=== PATIENT | female | born 1955 | race Caucasian/White ===

== ENCOUNTER → 2019-03-27 | Outpatient (CLI) | payer BC ==
[2015-06-07 09:26] VITALS: BP 136/75
[~2019-03-27] MED LIST: CHOL100014 PO; CYAN1TAB28 PO; GLIP2.5T4 PO; LOSA25TA54 PO; METF10007 PO
--- NOTE | 2019-03-27 17:24 | KCIC ---
SHOULDER 2+V RIGHT History: Right shoulder pain after a fall. Injury 3 weeks ago. FINDINGS: No evidence of acute fracture. No evidence of aggressive bone destruction. Small lucencies at the greater tuberosity and at the glenoid are likely degenerative cysts. Joint spaces intact without dislocation. IMPRESSION: No evidence of acute fracture or dislocation. Electronically signed by: Michael Beltrán MD (03/27/2019 5:21 PM) [email or web address]
== END | disposition home or self-care (01) ==
LOC: KCIC 14:51
PROVIDERS: ATTEND Nurse Practitioner Family
DX: M25.511 Pain in right shoulder (principal)
CPT/HCPCS: 73030

== ENCOUNTER → 2019-04-06 | Outpatient (CLI) | payer BC ==
[2015-06-07 09:26] VITALS: BP 136/75
--- NOTE | 2019-04-06 10:33 | KCIC ---
Examination: MRI of the right shoulder without contrast HISTORY: History of right shoulder pain, fall COMPARISON: None available TECHNIQUE: Multiplanar, multisequence MR imaging of the right shoulder performed without contrast. Findings: The long head of the biceps tendon within the bicipital groove. The attachment of the long head the biceps tendon to the superior labral anchor grossly appears intact. The attachment of the subscapularis tendon grossly appears intact. There is increased signal identified in the undersurface fibers of the supraspinatus tendon extending anteriorly and posteriorly measuring 1.2 cm likely high-grade partial tear of the supraspinatus tendon. Moderate tendinosis of the supraspinatus, infraspinatus tendon is identified. Moderate degenerative changes at midclavicular joint. Acromion is type II. The inferior aspect of the acromion abuts the superior supraspinatus tendon. There is increased T2 signal identified in the distal clavicle and the acromioclavicular ligaments could be sprain/edema. The visualized labrum grossly appears unremarkable. Small subchondral cystic changes identified in the glenoid likely degenerative changes. The muscle bulk grossly appears unremarkable. Fat is present within the rotator interval. IMPRESSION: 1. High-grade partial undersurface tear of the supraspinous tendon. The inferior aspect of the acromion abuts the superior aspect of supraspinatus tendon. Correlate for impingement. 2. Moderate tendinosis rotator cuff. 3. Increased T2 signal identified in the distal clavicle and about the acromial clavicular ligament could be secondary to edema/sprain. 4. Moderate degenerative changes glenohumeral joint. Electronically signed by: Aguilar Raymond MD (04/06/2019 10:30 AM) [email or web address]
== END | disposition home or self-care (01) ==
LOC: KCIC MRI 07:52
PROVIDERS: ATTEND Nurse Practitioner Family
DX: M75.101 Unspecified rotator cuff tear or rupture of right shoulder, not specified as traumatic (principal); M19.011 Primary osteoarthritis, right shoulder; M75.81 Other shoulder lesions, right shoulder
CPT/HCPCS: 73221